=== PATIENT | male | born 1950 | race American Indian/Alaskan Native ===

== ENCOUNTER 2019-02-15 07:07 | Observation (INO) | payer MEDICARE, OTHER ==
[2019-02-11 10:08] LABS: Basophils % (Auto) 0.7 % (0.0-1.8); Eosinophils # (Auto) 0.1 K/mm3 (0.0-0.4); Eosinophils % (Auto) 3.5 % (0.0-4.3); Hematocrit 41.9 % (35.5-45.6); Hemoglobin 14.4 gm/dl (11.8-15.2); Lymphocytes # (Auto) 1.5 K/mm3 (1.2-5.4); Lymphocytes % (Auto) 42.9 % (13.4-35.0); Mean Corpuscular HGB Conc 34 % (32-34); Mean Corpuscular Volume 93 fl (84-94); Monocytes # (Auto) 0.4 K/mm3 (0.0-0.8); Monocytes % (Auto) 11.8 % (0.0-7.3); Platelet Count 229 K/mm3 (140-440); Red Blood Count 4.49 M/mm3 (3.65-5.03); Red Cell Distribution Width 13.3 % (13.2-15.2)
[2019-02-11 10:17] LABS: Alanine Aminotransferase 24 units/L (7-56); Albumin 4.3 g/dL (3.9-5); BUN/Creatinine Ratio 16; Blood Urea Nitrogen 13 mg/dL (9-20); Calcium 9.5 mg/dL (8.4-10.2); Hemolysis Index 15
--- NOTE | 2019-02-11 10:31 | Anesthesia Consultation ---
Anesthesia Consult and Med Hx Date of service: 02/11/19 - Airway Anesthetic Teeth Evaluation: Good ROM Head & Neck: Adequate Mental/Hyoid Distance: Adequate Mallampati Class: Class II - Pulmonary Exam CTA: Yes - Cardiac Exam Cardiac Exam: RRR - Pre-Operative Health Status ASA Pre-Surgery Classification: ASA2 Proposed Anesthetic Plan: General (HTN) - Pulmonary Hx Smoking: No Hx Sleep Apnea: No (SALLIE PRE SCREEN HIGH RISK.) - Cardiovascular System Hx Hypertension: Yes (X 15 YRS) - Central Nervous System Hx Back Pain: Yes (NECK AND BACK PAIN) - Other Systems Hx Cancer: No
--- NOTE | 2019-02-11 10:32 | Anesthesia Day of Surgery ---
Anesthesia Day of Surgery - Day of Surgery Patient Examined: Yes Patient H&P Reviewed: Yes Patient is NPO: Yes
[~2019-02-15 07:07] MED LIST: ACETAMINOPHEN 500 MG TAB PO ONE; BACTERIOSTATIC SODIUM CHLORIDE 0.9% 30 ML VIAL INFILTRATI ONE; CELECOXIB 200 MG CAP PO NR; GABAPENTIN 300 MG CAP PO NR; GABAPENTIN 500 MG/10 ML ORAL LIQD PO NR; LACTATED RINGERS 1,000 ML IV SCH; MIDAZOLAM 2 MG/2 ML INJ IV NR
[2019-02-15] MEDS ORDERED: GELATIN SPONGE SIZE 100 TP ONE ×2 (07:18→09:32)
[2019-02-15] MEDS ORDERED: BACITRACIN 50,000 UNIT VIAL ONE (07:18)
--- NOTE | 2019-02-15 07:18 | Anesthesia Day of Surgery ---
Anesthesia Day of Surgery - Day of Surgery Patient Examined: Yes Patient H&P Reviewed: Yes Patient is NPO: Yes
[2019-02-15] MEDS ORDERED: HYDROmorphone 1 MG/1 ML INJ IV PRN ×2 (07:19→10:40)
[2019-02-15] MEDS ORDERED: SODIUM CHLORIDE P/F VIAL 10 ML 10 ML ONE (07:19)
[2019-02-15] MEDS ORDERED: ONDANSETRON 4 MG/2 ML INJ IV PRN ×2 (07:19→10:40)
[2019-02-15] MEDS ORDERED: LIDOCAINE 1%/EPINEPHRINE 1:100,000 VIAL (20 ML) INFILTRATI ONE ×2 (07:19→09:07)
[2019-02-15] MEDS ORDERED: SODIUM CHLORIDE 0.9% 250ML 250 ML ONE (07:19)
[2019-02-15] MEDS ORDERED: THROMBIN (RECOMBINANT) 5,000 UNIT VIAL TP ONE ×3 (07:20→09:34)
[2019-02-15] MEDS ORDERED: PROPOFOL 200 MG/20 ML VIAL IV ONE ×3 (07:39→09:09)
[2019-02-15] MEDS ORDERED: HYDROmorphone 1 MG/1 ML INJ ONE (07:39)
[2019-02-15] MEDS ORDERED: LIDOCAINE MPF (2%) 20 MG/1 ML VIAL 5 ML ONE (07:40)
[2019-02-15] MEDS ORDERED: fentaNYL 100 MCG/2 ML INJ IV NR (07:42)
[2019-02-15] MEDS ORDERED: SUCCINYLCHOLINE CHLORIDE 200 MG/10 ML INJ MDV ONE (07:44)
[2019-02-15] MEDS ORDERED: ceFAZolin/STERILE WATER 2 GM/20 ML SYRINGE IV NR (08:13)
--- NOTE | 2019-02-15 08:18 | Short Stay Summary ---
Short Stay Documentation Date of service: 02/15/19 - History H&P: obtained from office Past Medical History: hypertension Social history: no significant social history - Allergies and Medications Current Medications: Allergies No Known Allergies Allergy (Verified 02/09/19 16:04) Home Medications Medication Instructions Recorded Confirmed Last Taken Type Amlodipine/Valsartan/Hcthiazid 1 each PO DAILY 02/09/19 02/09/19 Unknown History [Exforge Hct 10-320-25 mg Tab] Aspirin [Adult Aspirin] 81 mg PO DAILY 02/09/19 02/09/19 Unknown History Latanoprostene Bunod [Vyzulta] 1 drop OP DAILY 02/09/19 02/09/19 Unknown History Active Medications Cefazolin Sodium (Ancef/Sterile Water 2 Gm/20 Ml) 2 gm IV PREOP NR Celecoxib (Celebrex) 200 mg PO PREOP NR Stop: 02/15/19 23:00 Fentanyl (Sublimaze) 50 mcg IV ONCE NR Stop: 02/15/19 08:30 Gabapentin (Gabapentin) 300 mg PO PREOP NR Stop: 02/15/19 23:00 Hydromorphone HCl (Dilaudid) 0.5 mg IV Q10MIN PRN PRN Reason: Pain , Severe (7-10) Stop: 02/15/19 20:00 Lactated Ringer's (Lactated Ringers) 1,000 mls @ 100 mls/hr IV DIRECT LAWSON Cefazolin Sodium (Ancef/Sterile Water 2 Gm/20 Ml) 2 gm in 20 mls @ 80 mls/hr IV PREOP NR; Protocol Midazolam HCl (Versed) 2 mg IV PREOP NR Stop: 02/15/19 23:00 Ondansetron HCl (Zofran) 4 mg IV ONCE PRN PRN Reason: Nausea And Vomiting Stop: 02/15/19 13:00 - Physical exam General appearance: no acute distress HEENT: Atraumatic Lungs: Clear to auscultation Breasts: deferred Heart: Regular rate Gastrointestinal: normal Male Genitourinary: deferred Rectal Exam: deferred Extremities: no ischemia, No edema, Full ROM Neurological: Normal gait, Normal speech, Normal tone Short Stay Discharge Plan Activity: advance as tolerated Diet: regular Wound: open to air (remove dressing tomorrow and leave open to air. Okay to shower.) Follow up with: DEBORAH ACE MD [Primary Care Provider] - 7 Days Prescriptions: HYDROcodone/APAP 5-325 [[place] 5/325] 1 each PO Q6HR PRN #30 tablet PRN Reason: Pain
[2019-02-15] MEDS ORDERED: ceFAZolin/Water 2 GM/20 ML 2 GM/20 ML SYRINGE IV NR (09:00)
[2019-02-15] MEDS ORDERED: SODIUM CHLORIDE 0.9% 250 ML IVPB IV ONE (09:15)
[2019-02-15] MEDS ORDERED: dexAMETHasone 20 MG/5 ML VIAL ONE (09:19)
[2019-02-15] MEDS ORDERED: CALCIUM CHLORIDE 1,000 MG/10 ML SYRINGE IV ONE (09:21)
[2019-02-15] MEDS ORDERED: BACITRACIN 50,000 UNIT VIAL IR ONE (09:30)
[2019-02-15] MEDS ORDERED: ONDANSETRON 4 MG/2 ML INJ ONE (10:28)
[2019-02-15] MEDS ORDERED: oxyCODONE /ACETAMINOPHEN 5-325MG TAB PO PRN (10:40)
[2019-02-15] MEDS ORDERED: ACETAMINOPHEN 325 MG TAB PO PRN (10:40)
[2019-02-15] MEDS ORDERED: MORPHINE 4 MG/1 ML INJ IV PRN (10:40)
[2019-02-15] MEDS ORDERED: cloNIDine 0.1 MG TAB PO PRN (10:40)
[2019-02-15] MEDS ORDERED: CYCLOBENZAPRINE 10 MG TAB PO PRN (10:40)
[2019-02-15] MEDS ORDERED: diphenhydrAMINE 25 MG CAP PO PRN (10:40)
[2019-02-15] MEDS ORDERED: BENZOCAINE/MENTHOL LOZENGE MM PRN (10:40)
[2019-02-15] MEDS ORDERED: NALOXONE 0.4 MG/1 ML INJ IV PRN (10:40)
[2019-02-15] MEDS ORDERED: HYDROcodone/ACETAMINOPHEN 5-325 MG TAB PO PRN (10:40)
[2019-02-15] MEDS ORDERED: METOCLOPRAMIDE 10 MG/2 ML INJ IV PRN (10:40)
--- NOTE | 2019-02-15 10:53 | Operative Report ---
Operative Report Operative Report: DATE OF PROCEDURE: 02/15/2019 PREOPERATIVE DIAGNOSIS: C5 radiculopathy POSTOPERATIVE DIAGNOSIS: C5 radiculopathy OPERATIVE PROCEDURE: 1. Anterior cervical arthrodesis C4 5 2. Interbody biomechanical graft placement 45 SURGEON: Adrien Momin MD [employer] PROJECT ENGINEER: ANESTHESIA: General endotracheal anesthesia EBL: 100 mL INDICATIONS FOR PROCEDURE: Severe persistent right C5 radiculopathy with numbness and weakness FINDINGS: Or osteophyte posterior to the vertebral body of C4 and C5 with comp ression of the spinal cord PROCEDURE: The patient was brought to the operating room and placed on the operating table in the supine position. The patient underwent general endotracheal anesthesia without complication. After all lines were placed including monitoring the right neck was prepped and draped in a sterile fashion. After an appropriate time out was taken the area of intended incision was infiltrated with 1% lidocaine with epinephrine. The skin was opened using a 10 blade and carried down to the platysma. The platysma was divided sharply and the anterior cervical strap muscles were dissected bluntly. The anterior cervical spine was approached and a self-retaining retractor was placed under the longus colli muscles. The microscope was brought into the field and the discectomy was begun by making an incision in the disc space of C45. The anterior aspect of the C4 5 disc was removed using a combination of curettes and pituitary rongeurs. The posterior aspect of the disc and osteophyte was removed using a high-speed drill and Kerrison rongeurs. The posterior longitudinal ligament was incised and the thecal sac decompressed. Bilateral foraminotomies were performed and the neural foramen were checked to ensure no remaining disc or osteophyte was present. Hemostasis was obtained and the endplates were prepared for fusion by removing the remainder of the cartilaginous portion. Biomechanical grafts were then sized packed with bone growth stimulator. The graft then placed in the the 45 interspace and secured using plates provided by [facility]. Hemostasis was obtained and the platysma was reapproximated using 3-0 Vicryl and finally 4-0 Monocryl for the skin. The lap sponge and needle count was correct at the end of the procedure, the patient tolerated the procedure well and was taken to the recovery room extubated and in good condition.
[2019-02-15] MEDS ORDERED: SODIUM CHLORIDE 0.9% 1000 ML 1,000 ML IV SCH (11:00)
[2019-02-15] MEDS ORDERED: LACTATED RINGERS 1,000 ML ONE (11:09)
--- NOTE | 2019-02-15 11:14 | XRay Report ---
INTRAOPERATIVE FLUOROSCOPY: CERVICAL SPINE INDICATION / CLINICAL INFORMATION: CERVICAL RADICULOPATHY. TECHNIQUE: Intraoperative spot images were obtained during the procedure. FINDINGS: Intraoperative spot image shows a needle marker entering anteriorly at the level of the C4-5 disc spa ce. Subsequent images show discectomy and fusion changes at C4-5. Fluoroscopy Time: 6 seconds. Fluoroscopy Images: 2. Signer Name: Андрей Whiteside MD Signed: 02/15/2019 11:10 AM Workstation Name: [id number]
--- NOTE | 2019-02-15 13:40 | Post Anesthesia Evaluation ---
- Post Anesthesia Evaluation Patient Participated: Yes Airway Patent: Yes Stable Respiratory Function: Yes Nausea/Vomiting: No Temp > 96.8F: Yes Pain Manageable: Yes Adequeate Hydration: Yes Anesthesia Complications: No Block Receding Appropriately: Not Applicable Patient on Ventilator: No
[2019-02-15] MEDS ORDERED: ceFAZolin/NS 1 GM/50 ML 1 GM/50 ML BAG IV SCH (16:00)
[2019-02-15] MEDS: SENNOSIDES 8.6 MG TAB PO SCH (22:14)
[2019-02-15] MEDS: FAMOTIDINE 20 MG TAB PO SCH (22:14)
[2019-02-16] MEDS ORDERED: HCTHIAZID PO SCH (10:00)
[2019-02-16] MEDS ORDERED: VALSARTAN PO SCH (10:00)
[2019-02-16] MEDS ORDERED: [UNRECOGNIZED DRUG - OTHER] PO SCH (10:00)
[2019-02-16] MEDS ORDERED: hydroCHLOROthiazide 25 MG TAB PO SCH (10:00)
[2019-02-16] MEDS ORDERED: amLODIPine 10 MG TAB PO SCH (10:00)
[2019-02-16] MEDS ORDERED: VALSARTAN 160MG TAB PO SCH (10:00)
[2019-02-16] MEDS ORDERED: LATANOPROSTENE BUNOD OP SCH (10:00)
[2019-02-16] MEDS ORDERED: AMLODIPINE PO SCH (10:00)
[2019-02-16] MEDS: SENNOSIDES 8.6 MG TAB PO SCH (11:21)
[2019-02-16] MEDS: FAMOTIDINE 20 MG TAB PO SCH (11:22)
[2019-02-16 12:48] VITALS: BP 122/72
== END 2019-02-16 13:10 | disposition home or self-care (01) ==
LOC: OR 07:07 → 3B-SURG 08:15 → EDSTATUS 08:30
PROVIDERS: ADMIT Neurological Surgery; ATTEND Neurological Surgery
DX: M54.12 Radiculopathy, cervical region (principal); I10 Essential (primary) hypertension; Z79.82 Long term (current) use of aspirin
CPT/HCPCS: 20930; 22554; 22853; 36415; 72020; 80053; 85025; 86850; 86900; 86901; 88304; 96365; 97116; 97162; A4649; C1713; G0378; J0330; J0690; J1100; J1170; J2250; J2405; J2704; J3010; J7030; J7050; J7120